=== PATIENT | female | born 1955 | race Caucasian/White ===

== ENCOUNTER 2017-04-24 12:50 | Inpatient (IN) | payer BC ==
[~2017-04-24] VITALS: Ht 167.6 cm; Wt 66.0 kg
[~2017-04-24 12:50] MED LIST: LACTATED RINGER'S 1000 ML INJ 1,000 ML IV ONE; ONDANSETRON HCL 4 MG/2 ML VIAL IV PUSH ONE; PHENYLEPH/NS 1000 MCG/10 ML SYR IV ONE; PROPOFOL 200 MG/20 ML AMP IV ONE; SODIUM CHLORID 0.9% 500 ML INJ 500 ML IV ONE
[2017-04-24] MEDS ORDERED: PENT400T PO (13:54)
--- NOTE | 2017-04-24 13:55 | RADRPT ---
EXAM DATE/TIME: 04/24/2017 13:21 [place] COMPARISON: No previous studies available for comparison. INDICATIONS : Evaluate for pneumonia, pneumothorax or communicable disease. Pre surgery colostomy MEDICAL HISTORY : Carcinoma, colon. SURGICAL HISTORY : Infusaport ENCOUNTER: Initial ACUITY: 1 day PAIN SCORE: 0/10 LOCATION: chest FINDINGS: A single view of the chest demonstrates the lungs to be symmetrically aerated without evidence of mas s, infiltrate or effusion. There is a right-sided implantable port catheter in place. The cardiomedi astinal contours are unremarkable. Osseous structures are intact. CONCLUSION: No acute disease. Dmitry Banerjee MD on April 24, 2017 at 13:53 Board Certified Radiologist. This report was verified electronically.
[2017-04-24] MEDS ORDERED: LACTATED RINGER'S 1000 ML IV PRN (14:00)
[2017-04-24] MEDS ORDERED: METOPROLOL TARTRATE 25 MG TAB PO PRN (14:00)
[2017-04-24] MEDS ORDERED: POVIDONE IODINE 5% (ANTISEPSIS KIT) 4 APPLICATIONS EACH NARE PRN (14:00)
[2017-04-24] MEDS ORDERED: DEXT 5%-NACL 0.9% 1000 ML INJ 1,000 ML IV SCH (14:00)
[2017-04-24] MEDS ORDERED: SODIUM CHLORIDE 0.9% FLUSH 10 ML FLUSH IV FLUSH PRN ×2 (14:00→17:00)
[2017-04-24] MEDS ORDERED: INSULIN HUMAN REGULAR 1,000 UNITS/10 ML VIAL SQ PRN (14:00)
[2017-04-24] MEDS ORDERED: SODIUM CHLORID 0.9% 500 ML IV PRN (14:00)
[2017-04-24] MEDS ORDERED: CHLORHEXIDINE GLUCONATE 2 % 1 PACK (2 CLOTHS) TOPICAL PRN (14:00)
[2017-04-24] MEDS ORDERED: ceFAZolin 1,000 MG/NS 100 ML IV SCH ×2 (14:00)
[2017-04-24] MEDS ORDERED: METRONIDAZOLE 500 MG/100 ML ISONTONIC SOLN IV SCH (14:00)
[2017-04-24 14:25] LABS: AUTOMATED NEUTROPHIL # 6.9 TH/MM3 (1.8-7.7); BASOPHIL % 0.4 % (0.0-2.0); EOSINOPHIL # 0.2 TH/MM3 (0-0.4); EOSINOPHIL % 2.5 % (0.0-4.0); HEMATOCRIT 36.7 % (35.0-46.0); HEMO FLAGS DIFF FINAL; LYMPHOCYTE # 0.9 TH/MM3 (1.0-4.8); MEAN CELL VOLUME 84.5 FL (80.0-100.0); MEAN CORPUSCULAR HEMOGLOBIN 27.9 PG (27.0-34.0); MONO % 6.6 % (0.0-8.0); NEUT % 80.5 % (16.0-70.0); PLATELET COUNT 239 TH/MM3 (150-450); RED BLOOD COUNT 4.34 MIL/MM3 (4.00-5.30); RED CELL DISTRIBUTION WIDTH 15.3 % (11.6-17.2); WHITE BLOOD COUNT 8.6 TH/MM3 (4.0-11.0)
[2017-04-24 14:35] LABS: APTT (PATIENT) 27.3 SEC (24.3-30.1); PROTHROMBIN TIME - PATIENT 10.7 SEC (9.8-11.6)
[2017-04-24 14:38] LABS: BACTERIA, URINE RARE /hpf; BLOOD, URINE ND (NEG); COMMENT (UR) CULTURE INDICATED; CULTURE IF INDICATED CULTURE INDICATED; GLUCOSE,URINE ND mg/dL (NEG); HYALINE CAST, URINE 22 /lpf (RARE); KETONE, URINE ND mg/dL (NEG); MUCUS URINE MANY /lpf (OCC); NITRITE,URINE ND (NEG); PH, URINE ND (5.0-8.5); SQUAMOUS EPITHELIAL CELL URINE 2 /hpf (0-5); URINE COLOR YELLOW (YELLW/STRAW)
[2017-04-24 14:46] LABS: ANION GAP 9 MEQ/L (5-15); AST (GOT) 5 U/L (15-37); BICARBONATE 23.9 MEQ/L (21.0-32.0); BLOOD UREA NITROGEN 18 MG/DL (7-18); CHLORIDE 106 MEQ/L (98-107); GLOMERULAR FILTRATION RATE 78 ML/MIN (>89); POTASSIUM 3.9 MEQ/L (3.5-5.1); SODIUM (NA) 139 MEQ/L (136-145)
[2017-04-24 14:47] LABS: ALT (GPT) 10 U/L (10-53)
[2017-04-24 14:49] LABS: ALKALINE PHOSPHATASE 94 U/L (45-117); TOTAL BILIRUBIN ADULT 0.3 MG/DL (0.2-1.0)
[2017-04-24] MEDS ORDERED: ACETAMINOPHEN 1000 MG/100 ML 100 ML IV ONE (14:59)
[2017-04-24] MEDS ORDERED: MIDAZOLAM HCL 2 MG/2 ML VIAL ONE (14:59)
[2017-04-24] MEDS ORDERED: HYDROmorphone HCL PF 2 MG/ML VIAL ONE (15:00)
[2017-04-24] MEDS ORDERED: FAMOTIDINE 20 MG/2 ML VIAL ONE (15:00)
[2017-04-24] MEDS ORDERED: SUGAMMADEX SODIUM 200 MG/2 ML VIAL IV PUSH ONE ×2 (16:18)
[2017-04-24] MEDS ORDERED: BENZOCAINE 6 MG/MENTHOL 10 MG LOZENGE BUCCAL PRN (17:00)
[2017-04-24] MEDS ORDERED: POTASSIUM CHLOR 20 MEQ PREMIX 100 ML IV PRN (17:00)
[2017-04-24] MEDS ORDERED: Post-op Orders (for Pharmacy) MISC XX ONE (17:00)
[2017-04-24] MEDS ORDERED: POTASSIUM CHLOR 40 MEQ PREMIX 100 ML IV PRN (17:00)
[2017-04-24] MEDS ORDERED: ONDANSETRON HCL 4 MG/2 ML VIAL IV PRN (17:00)
[2017-04-24] MEDS ORDERED: ACETAMINOPHEN/HYDROcodone 325 MG/5 MG TAB PO PRN (17:00)
[2017-04-24] MEDS ORDERED: ENALAPRILAT 1.25 MG/ML VIAL IV PRN (17:00)
[2017-04-24] MEDS ORDERED: NALOXONE HCL 0.4 MG/ML AMP IV PRN (17:00)
[2017-04-24] MEDS: D5-LR + KCL 20 MEQ INJ 1,000 ML IV SCH ×2 (17:20→23:53)
[2017-04-24] MEDS ORDERED: *MEPERIDINE 25 MG INJ VIAL PERIprocedural Use ONLY ONE (17:25)
[2017-04-24 18:14] LABS: BASOPHIL % 0.3 % (0.0-2.0); EOSINOPHIL # 0.2 TH/MM3 (0-0.4); EOSINOPHIL % 3.8 % (0.0-4.0); HEMATOCRIT 35.4 % (35.0-46.0); HEMO FLAGS DIFF FINAL; LYMPH % 20.4 % (9.0-44.0); LYMPHOCYTE # 1.2 TH/MM3 (1.0-4.8); MEAN CELL VOLUME 85.4 FL (80.0-100.0); MEAN CORPUSCULAR HEMOGLOBIN 27.8 PG (27.0-34.0); MEAN CORPUSCULAR HGB CONC 32.5 % (32.0-36.0); MONO % 6.9 % (0.0-8.0); NEUT % 68.6 % (16.0-70.0); PLATELET COUNT 214 TH/MM3 (150-450); RED BLOOD COUNT 4.14 MIL/MM3 (4.00-5.30); RED CELL DISTRIBUTION WIDTH 15.3 % (11.6-17.2); WHITE BLOOD COUNT 5.8 TH/MM3 (4.0-11.0)
[2017-04-24 18:24] LABS: BICARBONATE 25.6 MEQ/L (21.0-32.0)
[2017-04-24] MEDS: METOCLOPRAMIDE HCL 10 MG/2 ML VIAL IVS SCH ×2 (18:45→23:52)
[2017-04-24] MEDS: MORPHINE SULFATE 30 MG/30 ML PCA IV SCH (19:17)
[2017-04-24] MEDS: SODIUM CHLORIDE 0.9% FLUSH 10 ML FLUSH IV FLUSH SCH (20:10)
[2017-04-24 20:33] VITALS: PULSE 82
[2017-04-24 20:45] VITALS: BP 110/70; PULSE 78; RESP 18; TEMP 97.6; O2SAT 100
[2017-04-24 21:00] VITALS: PULSE 76
[2017-04-24] MEDS ORDERED: ZOLPIDEM TARTRATE 5 MG TAB PO PRN (21:00)
[2017-04-24] MEDS ORDERED: DO NOT ADM ANY ANTICOAGULANT DRUGS PRN (21:00)
[2017-04-24 22:00] VITALS: PULSE 76; RESP 16
[2017-04-24] MEDS: PCA - TOTAL MG MORPHINE DELIVERED PER SHIFT SCH (22:00)
[2017-04-24 23:00] VITALS: PULSE 81
[2017-04-24 23:20] VITALS: BP 103/64; PULSE 83; RESP 16; TEMP 97.9; O2SAT 98
[2017-04-25] VITALS (27 sets, daily range): BP systolic 86–112; BP diastolic 56–75; PULSE 84–123; RESP 16–18; TEMP 97.9–100.4; O2SAT 92–98
[2017-04-25] MEDS: METOCLOPRAMIDE HCL 10 MG/2 ML VIAL IVS SCH ×4 (05:04→23:28)
[2017-04-25 05:25] LABS: BASOPHIL % 0.2 % (0.0-2.0); EOSINOPHIL # 0.2 TH/MM3 (0-0.4); EOSINOPHIL % 2.8 % (0.0-4.0); HEMATOCRIT 33.5 % (35.0-46.0); HEMO FLAGS DIFF FINAL; LYMPH % 8.1 % (9.0-44.0); LYMPHOCYTE # 0.6 TH/MM3 (1.0-4.8); MEAN CELL VOLUME 85.2 FL (80.0-100.0); MEAN CORPUSCULAR HEMOGLOBIN 27.7 PG (27.0-34.0); MEAN CORPUSCULAR HGB CONC 32.5 % (32.0-36.0); MONO % 6.7 % (0.0-8.0); NEUT % 82.2 % (16.0-70.0); PLATELET COUNT 203 TH/MM3 (150-450); RED BLOOD COUNT 3.93 MIL/MM3 (4.00-5.30); WHITE BLOOD COUNT 7.3 TH/MM3 (4.0-11.0)
[2017-04-25] MEDS: PCA - TOTAL MG MORPHINE DELIVERED PER SHIFT SCH ×3 (05:29→22:00)
[2017-04-25 05:47] LABS: BICARBONATE 27.8 MEQ/L (21.0-32.0); POTASSIUM 4.2 MEQ/L (3.5-5.1)
[2017-04-25] MEDS: D5-LR + KCL 20 MEQ INJ 1,000 ML IV SCH ×2 (06:31→15:27)
[2017-04-25] MEDS: PANTOPRAZOLE SODIUM 40 MG VIAL IVP SCH (09:38)
[2017-04-25] MEDS: SODIUM CHLORIDE 0.9% FLUSH 10 ML FLUSH IV FLUSH SCH ×2 (10:24→21:00)
[2017-04-25] MEDS: MORPHINE SULFATE 30 MG/30 ML PCA IV SCH (10:49)
--- NOTE | 2017-04-25 10:51 | PD.WCN.NOT ---
Wound Consult Description: Consult for New Ostomy Teaching per Dr Madden Communicated with: ROSEANNA Gonzalez Additional Information: Attempted to see patient on [facility]. Patient was up to chair with visitors present with OPERATIONS SUPPORT SPECIALIST attempting to place patient back into bed. Will return with Colostomy kit later today. Ostomy Type: Colostomy Surgeon: Toni Madden MD Date of Surgery: Apr 24, 2017 [facility] Apr 25, 2017 10:51
--- NOTE | 2017-04-25 15:45 | HHI.PR ---
Subjective Remarks No N or V. Liquid stool. C/O pain Objective Vital Signs Date Time Temp Pulse Resp B/P (MAP) Pulse Ox O2 Delivery O2 Flow Rate FiO2 04/25/17 14:12 17 04/25/17 14:00 91 04/25/17 13:50 97/66 (76) 04/25/17 13:42 17 04/25/17 13:00 88 04/25/17 12:30 94 Nasal Cannula 2.00 04/25/17 12:00 85 04/25/17 11:53 88 86/56 (66) 04/25/17 11:00 98 Room Air 04/25/17 11:00 98.2 87 17 88/57 (67) 93 04/25/17 11:00 84 04/25/17 10:57 85 17 88/57 (67) 98 04/25/17 10:49 18 04/25/17 10:00 88 04/25/17 09:00 90 04/25/17 08:00 92 04/25/17 08:00 100 Nasal Cannula 2.00 04/25/17 07:00 93 04/25/17 06:00 90 04/25/17 06:00 16 04/25/17 05:29 16 04/25/17 05:00 96 04/25/17 04:00 90 04/25/17 04:00 87 04/25/17 03:30 96 Nasal Cannula 2.00 04/25/17 03:30 98.5 91 16 95/60 (72) 96 04/25/17 03:00 88 04/25/17 02:00 87 04/25/17 01:00 84 04/25/17 00:00 84 04/24/17 23:20 97.9 83 16 103/64 (77) 98 04/24/17 23:20 98 Nasal Cannula 2.00 04/24/17 23:00 81 04/24/17 22:00 16 04/24/17 22:00 76 04/24/17 22:00 16 04/24/17 21:00 76 04/24/17 20:45 97.6 78 18 110/70 (83) 100 04/24/17 20:45 100 Nasal Cannula 2.00 04/24/17 20:33 82 04/24/17 19:45 97.7 76 14 109/64 (79) 100 Nasal Cannula 3 04/24/17 19:17 14 04/24/17 19:15 79 14 120/72 (88) 100 Nasal Cannula 3 04/24/17 18:15 74 14 114/70 (85) 100 Nasal Cannula 3 04/24/17 18:00 72 14 120/67 (84) 100 Nasal Cannula 3 04/24/17 17:45 76 14 127/72 (90) 100 Nasal Cannula 3 04/24/17 17:30 73 14 133/76 (95) 100 Nasal Cannula 4 04/24/17 17:17 97.7 81 14 136/72 (93) 100 Nasal Cannula 4 I/O 04/24/17 04/24/17 04/24/17 04/25/17 04/25/17 04/25/17 07:00 15:00 23:00 07:00 15:00 23:00 Intake Total 100 ml 1800 ml 1345 ml 1128 ml Output Total 285 ml 790 ml Balance 100 ml 1515 ml 555 ml 1128 ml Intake Oral 0 ml IV Total 100 ml 1345 ml 1128 ml Other 1800 ml Output Urine Total 210 ml 750 ml Stool Total 40 ml Estimated Blood Loss 75 ml Result Diagram: 04/25/17 0500 04/25/17 0500 Objective Remarks VS-S Abd: soft,stoma pink but large and edematous with venous engorgement. Assessment and Plan Assessment and Plan Stable POD#1 Advance diet. Colostomy bar to be removed next Friday. Colostomy teaching and [facility] Toni Madden MD Apr 25, 2017 15:45
--- NOTE | 2017-04-25 15:50 | HHI.FF ---
Face to Face Verification Diagnosis: (1) Colostomy status Home Health Nursing Order: Medical education Wound care and dressing changes Nursing assessment with vital signs Instructions: Needs colostomy supplies and teaching for new colostomy and colostomy bar to be removed 05/01/17 or 05/02/17 I have seen patient Margo Torres on 04/25/17. My clinical findings support the need for the requested home health care services because: Ltd mobility - disease progression Deconditioned w/ increased weakness Limited ability to care for self Need for psychosocial assistance I certify that my clinical findings support that this patient is homebound because: Post-op weakness Hx COPD- exertion dyspnea/weakness Unsteady gait/balance Need for psychosocial assistance Toni Madden MD Apr 25, 2017 15:50
--- NOTE | 2017-04-25 16:45 | PD.WCN.NOT ---
Wound Consult Description: Consult for New Ostomy Teaching per Dr Madden Communicated with: Patient Patients Patients friend Recommendation: Read booklet inside Colostomy kit provided Write down any questions you may have so you can obtain answers prior to discharge Practice using the appliances inside the kit (opening and closing and attaching the barrier to the pouch) Observe the staff open, empty, and close the pouch Empty pouch when 1/3-1/2 full Change barrier every 5-7 days and PRN for peristomal skin assessments Additional Information: Patient seen on [facility] for ostomy assessment and teaching. Ostomy Type: Colostomy Surgeon: Toni Madden MD Date of Surgery: Apr 24, 2017 Complete: Starter kit, Education materials, Other (4 appliances ordered in size 2 3/4" for stoma size of 1 3/4") Educated patient on: Patient was falling asleep during discussion of ostomy and general teaching topics includin. Wear time of 5-7 days, no longer 2. Emptying pouch before bedtime and when 1/3-1/2 full 3. Diet 4. Measuring of the stoma with each appliance private branch exchange installer the next 6-8 weeks 5. Output and color of stoma 6. Peristomal skin care (using adhesive removal wipes to take barrier off and using water only for cleansing of peristomal skin) 7. Sleeping with a snug fitting tshirt 8. Where and how to empty pouch of effluent 9. Demonstration of barrier and pouch 10. 4 appliances ordered for patient to go home with Additional information Patient seen on [facility] for ostomy teaching and ostomy assessment and had just gotten back into bed from sitting up in chair for second time today. Stoma was visualized on the mid left abdomen and measured 1 3/4". Stoma is dark red, round, moist, edematous, rachana in place, ~50ml of dark red liquid noted to pouch, and barrier intact with no leaks noted. Colostomy kit was given to patient with the booklet taken out and shown. Discussion with patient while she was falling asleep throughout, patients and patients friend were participating in the conversation and had questions that were answered. Will follow up with patient if available on Friday04/29/17. [facility] Apr 25, 2017 16:45
[2017-04-25 23:31] LABS: BLOOD GAS BASE EXCESS 2.3 mmol/L (-2-2); BLOOD GAS CARBOXYHEMOGLOBIN 2.2 % (0-4); BLOOD GAS HCO3 27 mmol/L (22-26); BLOOD GAS METHEMOGLOBIN 1.3 % (0-2); BLOOD GAS O2 HGB SATURATION 90 % (90-100); BLOOD GAS OXYGEN CONTENT 14.3 Vol % (12.0-20.0); BLOOD GAS PCO2 46 mmHg (38-42); BLOOD GAS PO2 72 mmHg (61-120); BLOOD GAS TOTAL HGB 11.2 G/DL (12.0-16.0); CRITICAL VALUE NO; TEMP CORR TO 98.6
[2017-04-25 23:32] LABS: DRAW SITE RT BRACHIAL; LITER FLOW 2.5 L/M; NUMBER OF ARTERIAL PUNCTURES 1; OXYGEN DEVICE NASAL CANNULA; STAT YES
[2017-04-26] VITALS (25 sets, daily range): BP systolic 90–108; BP diastolic 55–71; PULSE 82–104; RESP 16–19; TEMP 97.5–98.2; O2SAT 93–97
--- NOTE | 2017-04-26 01:19 | EKG ---
Date Performed: 04/24/2017 Time Performed: 13:20:33 PTAGE: 62 years EKG: Sinus rhythm NORMAL ECG NO PREVIOUS TRACING DOCTOR: Arden Bocanegra Interpretating Date/Time 04/26/2017 01:18:24
[2017-04-26 05:46] LABS: AUTOMATED NEUTROPHIL # 5.7 TH/MM3 (1.8-7.7); BASOPHIL % 0.2 % (0.0-2.0); EOSINOPHIL # 0.2 TH/MM3 (0-0.4); EOSINOPHIL % 2.3 % (0.0-4.0); HEMATOCRIT 33.3 % (35.0-46.0); HEMO FLAGS DIFF FINAL; LYMPHOCYTE # 0.8 TH/MM3 (1.0-4.8); MEAN CELL VOLUME 85.7 FL (80.0-100.0); MEAN CORPUSCULAR HEMOGLOBIN 28.1 PG (27.0-34.0); MEAN CORPUSCULAR HGB CONC 32.7 % (32.0-36.0); MONO % 8.5 % (0.0-8.0); PLATELET COUNT 192 TH/MM3 (150-450); RED BLOOD COUNT 3.88 MIL/MM3 (4.00-5.30); WHITE BLOOD COUNT 7.3 TH/MM3 (4.0-11.0)
[2017-04-26] MEDS: PCA - TOTAL MG MORPHINE DELIVERED PER SHIFT SCH ×2 (06:00→14:00)
[2017-04-26 06:10] LABS: BICARBONATE 29.8 MEQ/L (21.0-32.0)
[2017-04-26] MEDS: METOCLOPRAMIDE HCL 10 MG/2 ML VIAL IVS SCH ×4 (06:12→22:03)
[2017-04-26] MEDS: PANTOPRAZOLE SODIUM 40 MG VIAL IVP SCH (09:12)
[2017-04-26] MEDS: SODIUM CHLORIDE 0.9% FLUSH 10 ML FLUSH IV FLUSH SCH ×2 (09:13→20:12)
[2017-04-26] MEDS: D5-LR + KCL 20 MEQ INJ 1,000 ML IV SCH (11:02)
--- NOTE | 2017-04-26 15:19 | HHI.PR ---
Subjective Remarks POD#2 s/p diverting colostomy Comfortable Objective Vital Signs Date Time Temp Pulse Resp B/P (MAP) Pulse Ox O2 Delivery O2 Flow Rate FiO2 04/26/17 15:02 96 Nasal Cannula 2.00 04/26/17 15:02 97.8 89 17 103/67 (79) 96 04/26/17 14:00 18 04/26/17 11:00 97.7 87 18 101/71 (81) 97 04/26/17 11:00 97 Nasal Cannula 2.00 04/26/17 07:00 97.5 85 18 95/58 (70) 93 04/26/17 07:00 93 Nasal Cannula 2.00 04/26/17 06:00 16 04/26/17 06:00 90 04/26/17 06:00 16 04/26/17 05:00 84 04/26/17 04:00 83 04/26/17 03:30 98.2 87 16 90/55 (67) 96 04/26/17 03:30 96 Nasal Cannula 2.00 04/26/17 03:00 88 04/26/17 02:00 98 04/26/17 01:00 104 04/26/17 00:00 104 04/25/17 23:30 109 04/25/17 23:00 99.0 110 16 91/66 (74) 94 04/25/17 23:00 94 Nasal Cannula 2.00 04/25/17 22:00 16 04/25/17 22:00 16 04/25/17 20:01 92 Nasal Cannula 2.00 04/25/17 20:00 100.4 123 16 112/75 (87) 92 04/25/17 20:00 66 Room Air 04/25/17 19:30 21 04/25/17 16:09 Nasal Cannula 2.00 04/25/17 16:00 94 I/O 04/25/17 04/25/17 04/25/17 04/26/17 04/26/17 04/26/17 07:00 15:00 23:00 07:00 15:00 23:00 Intake Total 1345 ml 1128 ml 582 ml 800 ml 270 ml Output Total 790 ml 1050 ml 1120 ml Balance 555 ml 1128 ml -468 ml -320 ml 270 ml Intake Oral 0 ml 240 ml 240 ml IV Total 1345 ml 1128 ml 342 ml 560 ml 270 ml Output Urine Total 750 ml 1000 ml 1100 ml Stool Total 40 ml 50 ml 20 ml Result Diagram: 04/26/17 0445 04/26/17 0445 Objective Remarks Abdomen soft, nondistended, tender Stoma dusky Assessment and Plan Assessment and Plan Await bowel function Mobilize Frances Ontiveros MD Apr 26, 2017 15:19
[2017-04-26] MEDS: MORPHINE SULFATE 30 MG/30 ML PCA IV SCH (17:17)
[2017-04-26] MEDS: diphenhydrAMINE HCL 50 MG CAP PO PRN (18:35)
[2017-04-26] MEDS: ACETAMINOPHEN/HYDROcodone 325 MG/5 MG TAB PO PRN (22:04)
[2017-04-27] MEDS: ACETAMINOPHEN/HYDROcodone 325 MG/5 MG TAB PO PRN ×5 (01:56→22:03)
[2017-04-27 04:00] VITALS: BP 107/69; PULSE 85; RESP 19; TEMP 96.6; O2SAT 94
[2017-04-27] MEDS: METOCLOPRAMIDE HCL 10 MG/2 ML VIAL IVS SCH ×4 (05:24→22:03)
[2017-04-27] MEDS: D5-LR + KCL 20 MEQ INJ 1,000 ML IV SCH (05:24)
--- NOTE | 2017-04-27 06:28 | MP ---
cc: AYDEE HOLLIDAY MD, JOHN T. M.D. DATE OF SURGERY: 04/24/2017 PREOPERATIVE DIAGNOSIS: 1. Squamous cell carcinoma of the anal canal. 2. Severe anal pain due to radiation therapy of squamous cell carcinoma of the anal canal. POSTOPERATIVE DIAGNOSIS: 1. Squamous cell carcinoma of the anal canal. 2. Severe anal pain due to radiation therapy of squamous cell carcinoma of the anal canal. OPERATION: 1. Fully diverting loop sigmoid colostomy. 2. Flexible sigmoidoscopy 3. Rectal biopsies of previous anal canal carcinoma. ANESTHESIA General endotracheal anesthesia SURGEON Dr. Madden ESTIMATED BLOOD LOSS Minimal. OPERATIVE FINDINGS This patient was treated for a large posterior squamous cell carcinoma of the anal canal. She underwent therapeutic radiation therapy and chemotherapy, and then was referred to me with severe anal pain. She is presently about 4-1/2 months status post treatment and she has a large nonhealing posterior rectal ulcer in her lower rectum and the upper anal canal. She has been having really incontinence for stool an anal pain for all of the months during her treatment and has gotten to a point now where she cannot stand it anymore. I talked to her about the options of simply doing an abdominal perineal resection with an end colostomy assuming that there is still residual carcinoma or simply doing a diverting loop colostomy and biopsying the area once again to see if there is any residual. She decided with the colostomy and biopsy route to try to relieve her pain. At surgery a small incision was made in the left lower quadrant and the sigmoid colon was brought up into the stoma site and matured in an end-loop manner, closing the distal end so that no stool could go down in through her lower sigmoid and rectum to cause her pain. Also I did a flexible sigmoidoscopy to try to look at the area. There was too much stool there to really do anything. I did do transanal biopsies of the large ulcer which is really half the circumference of the distal rectum and anal canal. The ulcer does look quite clean and it does not appear to be carcinoma related, simply radiation related. I feel that it is fairly unlikely that she will be able to heal this area and get an anal sphincter control of stool back, although time will tell that. OPERATIVE TECHNIQUE The patient was placed on the table in the supine position. After adequate general endotracheal anesthesia, the legs were placed in the perineal lithotomy position and the abdomen was prepped and draped in the usual manner. A circular incision was made in the left lower quadrant at a previously marked location for the colostomy and the incision was taken down through the subcutaneous tissue and then the anterior rectus sheath was incised vertically and then the rectus muscle was split and the posterior rectus sheath was opened and the peritoneal cavity was entered. I was able to reach the sigmoid colon and pull up into the wound with adequate length. Priscila drain was placed around it and then a 70 mm bar was placed under the loop. I then did flexible sigmoidoscopy insufflating air determining which end was distal and then the loop was opened transversely toward the distal side and a 20 Belgian red rubber catheter was placed in the sigmoid and then a liter of saline solution was washed through the sigmoid and rectum for a rectal washout to get rid of the remainder of the stool in the rectum. Once this was completed the distal side of the colostomy was closed with a TX 60 green staple height stapler and then the colostomy was matured with interrupted 3-0 Vicryl sutures and the 70 mm colostomy appliance was placed. Once this was done, I once again went below and did transanal biopsies of the posterior rectal ulcer, both the base of the ulcer and the edges. Hemostasis was maintained with electrocautery. Once this was completed, sponge, needle and instrument counts were reported as correct. Estimated blood loss was minimal. The patient tolerated the procedure well and left the operating room in good condition. MD AMBREEN Sanchez/PEPPER /5:08 PM /5:27 AM
[2017-04-27] MEDS: PANTOPRAZOLE SODIUM 40 MG VIAL IVP SCH (07:45)
[2017-04-27 08:00] VITALS: BP 91/54; PULSE 69; RESP 16; TEMP 96.1; O2SAT 96
[2017-04-27] MEDS: SODIUM CHLORIDE 0.9% FLUSH 10 ML FLUSH IV FLUSH SCH ×2 (09:00→21:00)
--- NOTE | 2017-04-27 11:56 | HHI.PR ---
Subjective Remarks POD#3 s/p diverting colostomy Comfortable Objective Vital Signs Date Time Temp Pulse Resp B/P (MAP) Pulse Ox O2 Delivery O2 Flow Rate FiO2 04/27/17 08:05 Nasal Cannula 1.00 04/27/17 08:00 96.1 69 16 91/54 (66) 96 04/27/17 04:00 96.6 85 19 107/69 (82) 94 04/26/17 22:48 Nasal Cannula 2.00 04/26/17 22:41 97.5 84 19 108/68 (81) 96 04/26/17 20:06 95 Nasal Cannula 3.00 04/26/17 20:00 Nasal Cannula 2.00 04/26/17 20:00 97.6 87 90/64 (73) 96 04/26/17 19:00 101 04/26/17 18:00 96 04/26/17 17:17 16 04/26/17 17:00 88 04/26/17 16:00 88 04/26/17 15:02 96 Nasal Cannula 2.00 04/26/17 15:02 97.8 89 17 103/67 (79) 96 04/26/17 15:00 91 04/26/17 14:00 86 04/26/17 14:00 17 04/26/17 14:00 18 04/26/17 13:00 98 04/26/17 12:00 96 I/O 04/26/17 04/26/17 04/26/17 04/27/17 04/27/17 04/27/17 07:00 15:00 23:00 07:00 15:00 23:00 Intake Total 800 ml 270 ml 1034 ml 120 ml Output Total 1120 ml 1150 ml 100 ml Balance -320 ml 270 ml -116 ml 20 ml Intake Oral 240 ml 480 ml 120 ml IV Total 560 ml 270 ml 554 ml Output Urine Total 1100 ml 1150 ml Stool Total 20 ml 100 ml # Voids 2 Result Diagram: 04/26/175 04/26/17444 Objective Remarks Abdomen soft, nondistended, tender Stoma dusky, serosanguinous output Assessment and Plan Assessment and Plan Await bowel function HL IV Mobilize Frances Ontiveros MD Apr 27, 2017 11:56
[2017-04-27 12:00] VITALS: BP 110/64; PULSE 95; RESP 16; TEMP 96.2; O2SAT 92
[2017-04-27 16:00] VITALS: BP 111/66; PULSE 91; RESP 17; TEMP 96.9; O2SAT 92
[2017-04-27 20:00] VITALS: BP 106/66; PULSE 87; RESP 22; TEMP 96.8; O2SAT 96
[2017-04-27 20:01] VITALS: PULSE 88
[2017-04-27] MEDS: diphenhydrAMINE HCL 50 MG CAP PO PRN (22:39)
[2017-04-28] VITALS (7 sets, daily range): BP systolic 94–108; BP diastolic 52–70; PULSE 83–91; RESP 14–22; TEMP 96.3–97; O2SAT 90–98
[2017-04-28] MEDS: METOCLOPRAMIDE HCL 10 MG/2 ML VIAL IVS SCH ×4 (05:41→23:13)
[2017-04-28] MEDS: SODIUM CHLORIDE 0.9% FLUSH 10 ML FLUSH IV FLUSH SCH ×2 (09:06→19:33)
[2017-04-28] MEDS: PANTOPRAZOLE SODIUM 40 MG VIAL IVP SCH (09:06)
[2017-04-28] MEDS: ACETAMINOPHEN/HYDROcodone 325 MG/5 MG TAB PO PRN ×3 (09:07→18:11)
--- NOTE | 2017-04-28 12:35 | HHI.PR ---
Subjective Remarks POD#4 s/p diverting colostomy Comfortable Objective Vital Signs Date Time Temp Pulse Resp B/P (MAP) Pulse Ox O2 Delivery O2 Flow Rate FiO2 04/28/17 12:00 96.3 91 16 108/70 (83) 98 04/28/17 08:00 97.0 84 16 106/60 (75) 91 04/28/17 00:00 96.4 83 22 106/66 (79) 96 04/27/17 20:01 88 04/27/17 20:00 96.8 87 22 106/66 (79) 96 04/27/17 16:00 96.9 91 17 111/66 (81) 92 I/O 04/27/17 04/27/17 04/27/17 04/28/17 04/28/17 04/28/17 07:00 15:00 23:00 07:00 15:00 23:00 Intake Total 120 ml 2893 ml 240 ml Output Total 100 ml 400 ml Balance 20 ml 2493 ml 240 ml Intake Oral 120 ml 1260 ml 240 ml IV Total 1633 ml Output Urine Total 200 ml Stool Total 100 ml 200 ml # Voids 2 5 # Bowel Movements 2 Result Diagram: 04/26/17 0445 04/26/17 0445 Objective Remarks Abdomen soft, nondistended, tender Stoma pink, scant output Assessment and Plan Assessment and Plan Await bowel function Frances Ontiveros MD Apr 28, 2017 12:35
[2017-04-28] MEDS: diphenhydrAMINE HCL 50 MG CAP PO PRN (15:58)
[2017-04-29] VITALS (8 sets, daily range): BP systolic 98–137; BP diastolic 63–76; PULSE 72–95; RESP 16–20; TEMP 96.2–97.4; O2SAT 91–96
[2017-04-29] MEDS: diphenhydrAMINE HCL 50 MG CAP PO PRN (00:22)
[2017-04-29] MEDS: METOCLOPRAMIDE HCL 10 MG/2 ML VIAL IVS SCH ×2 (04:26→11:46)
[2017-04-29] MEDS: SODIUM CHLORIDE 0.9% FLUSH 10 ML FLUSH IV FLUSH SCH (09:08)
[2017-04-29] MEDS: PANTOPRAZOLE SODIUM 40 MG VIAL IVP SCH (09:08)
[2017-04-29] MEDS: ACETAMINOPHEN/HYDROcodone 325 MG/5 MG TAB PO PRN ×2 (09:16→16:35)
--- NOTE | 2017-04-29 13:57 | HHI.PR ---
Subjective Remarks No N or V. Soft stool. Not much pain Objective Vital Signs Date Time Temp Pulse Resp B/P (MAP) Pulse Ox O2 Delivery O2 Flow Rate FiO2 04/29/17 12:27 78 04/29/17 12:00 97.1 82 16 108/71 (83) 96 04/29/17 11:15 Room Air 04/29/17 11:15 78 04/29/17 09:44 75 04/29/17 08:02 72 04/29/17 08:00 96.2 95 18 137/76 (96) 92 04/29/17 07:57 Room Air 04/29/17 07:57 72 04/29/17 00:00 97.4 77 20 98/63 (75) 91 04/28/17 20:00 96.7 86 19 94/52 (66) 97 04/28/17 19:59 85 04/28/17 17:35 93 04/28/17 16:00 96.9 85 14 103/64 (77) 90 I/O 04/28/17 04/28/17 04/28/17 04/29/17 04/29/17 04/29/17 07:00 15:00 23:00 07:00 15:00 23:00 Intake Total 240 ml 1520 ml 120 ml 0 ml Output Total 0 ml 0 ml Balance 240 ml 1520 ml 120 ml 0 ml Intake Oral 240 ml 1520 ml 120 ml IV Total 0 ml Stool Total 0 ml 0 ml # Voids 7 2 # Bowel Movements 2 0 Result Diagram: 04/26/17 0445 04/26/17 0445 Objective Remarks VS-S Abd: soft,stoma pink but edematous,bar remains Assessment and Plan Assessment and Plan Stable POD#5 Change colostomy wafer today with probably a 57mm appliance. Remove bar today. Colostomy teaching and C. D/C today Toni Madden MD Apr 29, 2017 13:57
--- NOTE | 2017-04-29 17:59 | PD.WCN.NOT ---
Wound Consult Description: Consult for New Ostomy Teaching per Dr Madden Communicated with: ROSEANNA Kumar Patient Patient Recommendation: Empty pouch when 1/3-1/2 full Change barrier every 5-7 days and PRN for peristomal skin assessments Additional Information: Patient seen on [address] [place] [address] for Ostomy appliance change prior to discharge. Ostomy Type: Colostomy Surgeon: Toni Madden MD Date of Surgery: Apr 24, 2017 Complete: Starter kit, Education materials, Other (4 appliances ordered in oval size 2 3/4" for stoma size of 1 3/4" oval) Educated patient on: Changing the appliance every 5-7 days and PRN Peristomal skin care with water and soft cloths Appearance and measurement of stoma size over the next 6-8 weeks Use stoma paste as needed to build up and fill in creases prior to barrier application Contact insurance [employer] and ostomy supply companies for information regarding supplies that are available to you Me+ program for questions regarding supplies and basic stoma care Additional information Patient seen on [facility] for ostomy appliance change prior to discharge. Patient appliance was removed using adhesive removal wipes to protect skin. There was a moderate amount of stoma paste that had been applied that was somewhat difficult to remove and left a sticky residue on the peristomal skin that was left in place. The rachana was removed as physician requested prior to discharge. Patient tolerated the bar removal fairly. Stoma visualized on left mid quadrant was measured 1 3/4" oval, red with 2 darkened areas noted to stoma, moist, functioning with greenish brown malodorous thick liquid noted coming from lumen noted at 3 o'clock. Barrier size 2 3/4" oval appliance used with a small bead of stoma paste applied to rim of barrier. Drainable pouch attached and light pressure from a gloved hand was used to secure and warm appliance to adhere to abdomen. Many questions were answered that patient had written down over the weekend. Patient was encouraged to contact various suppliers for free appliances to trial and then contact insurance [employer] for specifics on obtaining appliances per her allotment. Jackelin Estrada [facility] Apr 29, 2017 17:59
--- NOTE | 2017-05-29 09:10 | MD ---
cc: AYDEE HOLLIDAY MD, JOHN T. M.D. ADMISSION DATE: 04/24/2017 DISCHARGE DATE: 04/29/2017 ADMISSION DIAGNOSIS 1. Squamous cell carcinoma of the anal canal. 2. Severe anal pain the radiation therapy and squamous cell carcinoma of the anal canal. DISCHARGE DIAGNOSIS 1. Anal ulcer secondary to radiation therapy for squamous cell carcinoma of the anal canal. OPERATIVE PROCEDURE 1. Fully diverting loop sigmoid colostomy 2. Flexible sigmoidoscopy 3. Rectal biopsies of previous anal canal carcinoma 04/24/2017 HISTORY This patient was treated for a large posterior squamous cell carcinoma of the anal canal. She underwent therapeutic radiation therapy and chemotherapy and then was referred to me with severe anal pain. She is presently about 4-1/2 month status post treatment and she has a large nonhealing posterior rectal ulcer in her lower rectum and upper anal canal. She has been having incontinence for stool and anal pain for months during and after her treatment and she is to the point where she cannot stand the pain anymore. I talked to her about the options of simply doing an abdominal perineal resection with an end colostomy permanently assuming that there is still residual carcinoma present or simply doing a diverting loop colostomy and biopsy of the area once again. She decided to have the diverting loop colostomy and biopsy to try to relieve her pain. LABORATORY DATA Pathology report on the removed specimen revealed only post radiation changes and indolent ulcer with no carcinoma present. HOSPITAL COURSE The patient was admitted to the hospital and underwent a diverting loop colostomy as mentioned. On the first postoperative day, she was started on a clear liquid diet. On the second postoperative day, she was started on a full liquid diet and on the third postoperative day she was started on a regular diet. Her abdomen was soft and nondistended. The stoma was somewhat dusky postoperatively and was edematous. She continued to improve and was seen by the enterostomal nurse and again the stoma was somewhat dusky and ischemic and venously engorged and swollen. Instructions were given and she was eventually discharged from the hospital on postoperative day #5 in good condition. She was instructed to do no lifting for six weeks, do no driving for two weeks and to follow up with me in the office in two weeks time. She was instructed to call me with any problems. MD AMBREEN Sanchez/AMANDA /1:32 PM /8:57 AM
== END 2017-04-29 16:44 | disposition home health service (06) | DRG 330 ==
LOC: HSDI 12:50 → HCIN 19:48 → N07B 04-26 21:50
PROVIDERS: ADMIT Colon & Rectal Surgery; ATTEND Colon & Rectal Surgery
PROC: 0DBP0ZX Excision of Rectum, Open Approach, Diagnostic (ICD-10-PCS; 2017-04-24)
PROC: 0DJD8ZZ Inspection of Lower Intestinal Tract, Via Natural or Artificial Opening Endoscopic (ICD-10-PCS; 2017-04-24)
PROC: 0D1N0Z4 Bypass Sigmoid Colon to Cutaneous, Open Approach (ICD-10-PCS; principal; 2017-04-24 15:17)
DX: K62.6 Ulcer of anus and rectum (principal); C21.1 Malignant neoplasm of anal canal; R15.9 Full incontinence of feces; K62.89 Other specified diseases of anus and rectum; F17.210 Nicotine dependence, cigarettes, uncomplicated; L29.9 Pruritus, unspecified; Z92.3 Personal history of irradiation; Z92.21 Personal history of antineoplastic chemotherapy; Y84.2 Radiological procedure and radiotherapy as the cause of abnormal reaction of the patient, or of later complication, without mention of misadventure at the time of the procedure; Z88.8 Allergy status to other drugs, medicaments and biological substances
CPT/HCPCS: 36600; 71010; 80048; 80053; 81001; 82805; 85025; 85610; 85730; 86077; 86850; 86870; 86900; 86901; 86902; 86920; 86922; 87077; 87086; 87186; 88305; 88307; 93005; 94150; C9113; J0131; J0690; J1170; J1642; J2175; J2250; J2270; J2370; J2405; J2765; J3010; J3480; J7040; J7120; Q0163

== ENCOUNTER 2018-06-23 11:37 | Inpatient (IN) ==
[2018-06-23] MEDS ORDERED: Sodium Chlor 0.9% Inj 500 ML IV.CONT ONE (12:15)
[2018-06-23] MEDS ORDERED: Metoprolol Tartrate 25 MG Tablet PO ONE (12:15)
[2018-06-23] MEDS ORDERED: Chlorhexidine Gluconate 2% 1 Pack (2 Cloths) TOPICAL ONE (12:15)
[2018-06-23] MEDS ORDERED: fentaNYL Citrate Inj 250 MCG/5 ML Ampul ONE (12:25)
[2018-06-23] MEDS ORDERED: HYDROmorphone PF Inj 2 MG/ML Vial ONE (12:25)
[2018-06-23] MEDS ORDERED: Sugammadex Inj 200 MG/2 ML Vial IV.PUSH ONE (13:25)
[2018-06-23] MEDS ORDERED: Normosol-R pH 7.4 Inj 1,000 ML IV.CONT ONE ×2 (13:33)
[2018-06-23] MEDS ORDERED: Lidocaine PF 1% Inj 5 ML Syringe OTHER ONE ×2 (13:33)
[2018-06-23] MEDS ORDERED: ceFAZolin 2 GM Premix Inj 2 GM/50 ML PIGGYBACK IV.SIG ONE (14:05)
--- NOTE | 2018-06-23 14:22 | P.OP ---
- Preoperative Diagnosis (1) History of anal cancer - Postoperative Diagnosis (1) History of anal cancer Date of procedure: 06/23/18 Procedure: Urologic procedures: Cystoscopy and placement of bilateral ureteral catheters Anesthesia: GETA Surgeon: Tank Mccollum MD Estimated blood loss (mL): 0 Pathology: none sent Operation and Findings: Urologic indication for procedures: Consulted intraoperatively to place bilateral ureteral catheters to aid in visualization of this patient's ureters during her colorectal procedure. Urologic procedures in detail: Concurrent with the colorectal surgeons I proceeded with cystoscopy and placement of bilateral ureteral catheters as follows: Initially cystoscopic evaluation was performed utilizing the rigid cystoscope with the 22 Mosotho sheath and the 30 degree lens. Both right and left ureteral orifices were in correct anatomic position draining clear yellow urine. There were no bladder mucosal lesions, calculi or diverticula formation. There are no areas suspicious for fistula formation. I then proceeded to pass a sensor 0.035 wire up the patient's left ureter until a small amount of resistance was met. A 6 Mosotho open-ended ureteral catheter was then advanced over this wire 25 cm in a cephalad direction and the wire withdrawn. The wire was reintroduced through secondary site via the cystoscope and the contralateral side was accomplished in similar fashion. The wire and cystoscope was then withdrawn and a 16 Mosotho 10 cc Yancey catheter was placed. Both ureteral catheters were anchored to the Yancey via a connector. All 3 catheters were placed to gravity drainage. This completes the urologic surgery portion of combined procedures on this patient.
[2018-06-23] MEDS ORDERED: Potassium Chlor 20 mEq Premix 20 MEQ/100 ML PIGGYBACK IV.SIG PRN (16:45)
[2018-06-23] MEDS ORDERED: Potassium Chlor 40 mEq Premix 40 MEQ/100 ML PIGGYBACK IV.SIG PRN (16:45)
[2018-06-23] MEDS ORDERED: Zolpidem Tartrate 5 MG Tablet PO PRN (16:47)
[2018-06-23] MEDS ORDERED: Naloxone Inj 0.4 MG/ML Vial IV.PUSH PRN (16:55)
[2018-06-23] MEDS ORDERED: KCL 20 mEq/D5W/LR Inj 1,000 ML ONE (17:00)
[2018-06-23] MEDS ORDERED: Morphine Inj 30 MG/30 ML PCA.VIAL PCA ONE (17:10)
[2018-06-23] MEDS: Morphine Inj 30 MG/30 ML PCA.VIAL PCA PRN (17:34)
[2018-06-23] MEDS: KCL 20 mEq/D5W/LR Inj 1,000 ML IV.CONT SCH ×2 (17:36→21:48)
[2018-06-23 17:43] LABS: Baso % (Auto) 0.5 % (0.0-2.0); Eos # (Auto) 0.1 th/mm3 (0.0-0.4); Hematocrit 37.6 % (35.0-46.0); Hemoglobin 12.5 gm/dL (11.6-15.3); Lymph # (Auto) 1.2 th/mm3 (1.0-4.8); Mean Corpuscular HGB Conc 33.2 % (32.0-36.0); Mean Corpuscular Hemoglobin 28.1 pg (27.0-34.0); Mean Corpuscular Volume 84.7 fL (80.0-100.0); Mean Platelet Volume 7.5 fL (7.0-11.0); Mono # (Auto) 0.3 th/mm3 (0.0-0.9); Mono % (Auto) 3.4 % (0.0-8.0); Neut # (Auto) 6.9 th/mm3 (1.8-7.7); Neut % (Auto) 81.1 % (16.0-70.0); Platelet Count 198 th/mm3 (150-450); Red Blood Count 4.44 mil/mm3 (4.00-5.30); Red Cell Distribution Width 15.5 % (11.6-17.2); White Blood Count 8.6 th/mm3 (4.0-11.0)
[2018-06-23 17:52] LABS: Calcium 7.7 mg/dL (8.5-10.1); Carbon Dioxide 27.9 meq/L (21.0-32.0); Potassium 3.6 meq/L (3.5-5.1)
--- NOTE | 2018-06-23 18:11 | MH ---
cc: Toni Madden MD, Shemin MD Bernard,Carlos DIAZ DATE OF ADMISSION: 06/23/2018 CHIEF COMPLAINT: 1. Anal incontinence. 2. Paracolostomy hernia. 3. History of anal cancer. HISTORY OF PRESENT ILLNESS: This patient is a 63-year-old patient who I had seen in the past. About a year and a half ago, she was diagnosed with anal cancer and was started on radiation therapy and chemotherapy. At the termination of the radiation and chemotherapy, she still had a large anal ulcer that biopsied benign, but she was having a lot of pain with this, so we did a diverting loop colostomy on her some time ago. She has developed a good sized paracolostomy hernia around that loop colostomy and she has full anal incontinence because of the radiation therapy. For this reason, she wished completion proctectomy/abdominal peritoneal resection with repair of her paracolostomy hernia. She did have a PET scan that seemed to show some hypermetabolic activity in some lymph nodes in the left pelvic sidewall and also the periaortic, para-iliac region. PAST MEDICAL HISTORY: Significant for previous diverticulitis, history of cervical cancer and a history of anal cancer. FAMILY HISTORY, SOCIAL HISTORY AND REVIEW OF SYSTEMS: Otherwise negative. PAST SURGICAL HISTORY: She has had a hysterectomy. PHYSICAL EXAMINATION: GENERAL: Well-developed, obese female in no acute distress. SKIN: Warm and dry. HEENT: Extraocular muscles intact. CHEST: Clear. HEART: S1 and S2 are heard. ABDOMEN: Obese, soft and nontender without masses. There is a left-sided fully diverting loop colostomy with a large paracolostomy hernia. RECTAL: Reveals a patulous anus with a previous posterior anal ulcer where the anal cancer was located, but this ulcer is now healed and scarred. EXTREMITIES: Range of motion within normal limits. NEUROLOGIC: Grossly normal. IMPRESSION: 1. Previous anal cancer, treated with radiation therapy and chemotherapy with subsequent anal incontinence. 2. Previous diverting loop colostomy. 3. Paracolostomy hernia. PLAN: Recommend abdominoperineal resection with closure of her perineum and then repair of her paracolostomy hernia by moving her colostomy to the other side. MD AMBREEN Sanchez/luz , 05:01 PM , 05:08 PM
--- NOTE | 2018-06-23 19:05 | MP ---
cc: Toni Madden MD, Shemin MD Bernard, Johnny MD DATE OF OPERATION: 06/23/2018 PREOPERATIVE DIAGNOSES: 1. Previous squamous cell carcinoma of the anal canal, status post radiation therapy and chemotherapy. 2. Anal incontinence due to radiation therapy and chemotherapy. 3. Left-sided colostomy with paracolostomy hernia. POSTOPERATIVE DIAGNOSES: 1. Previous squamous cell carcinoma of the anal canal, status post radiation therapy and chemotherapy. 2. Anal incontinence due to radiation therapy and chemotherapy. 3. Left-sided colostomy with paracolostomy hernia. PROCEDURE PERFORMED: 1. Abdominoperineal resection with colostomy moved to the right lower quadrant. 2. Repair of paracolostomy hernia. 3. Omental flap. SURGEON: Toni Madden MD COMMUNITY RELATIONS DIRECTOR: Alex Friedman MD ESTIMATED BLOOD LOSS: 200 mL. OPERATING TIME: 2 hours and 15 minutes. OPERATIVE FINDINGS: This patient had a previous squamous cell carcinoma of the anal canal and was treated with radiation therapy and chemotherapy with good result, although she had a large anal ulcer for many months that caused her a lot of pain. She also had anal incontinence and for this reason, a fully diverting loop colostomy was done in the sigmoid colon sometime ago. Since that time, she still had a lot of mucus drainage and full anal incontinence and for this reason, she wished to have her rectum resected. There was no evidence of any recurrence locally; however, on a couple of PET scans, she had some what appeared to be hypermetabolic lymphadenopathy on the left pelvic sidewall and the left iliac and aortic region. For this reason, resection was recommended as well. An abdominoperineal resection was done, resecting the sigmoid distal to her previous loop colostomy and her rectum and anal canal. Paracolostomy hernia repair was done and the colostomy was relocated in the right lower quadrant. Exploration of the abdominal cavity revealed that the liver was palpably normal as was the gallbladder. The colon just distal to the colostomy was somewhat indurated with diverticulosis and inspissated hard stool in the diverticula. The mesentery of the distal sigmoid colon was stuck to the bifurcation of the aorta and the left iliac artery, but this was eventually dissected free. This did not appear to have a contained tumor, but was somewhat inflammatory in nature. An abdominal perineal resection was done as was an end colostomy in the right lower quadrant. The remainder of the colon and small bowel was palpably normal. OPERATIVE TECHNIQUE: The patient was placed on the table in the supine position. After adequate general endotracheal anesthesia, the legs were placed in the perineal lithotomy position and the abdomen and perineum were prepped and draped in the usual manner. The colostomy was sutured closed with running 3-0 Vicryl suture prior to prepping and draping. A midline incision was made from the pubis to just above the umbilicus and carried down through the linea alba and the peritoneal cavity was entered with the above-mentioned findings. After inspecting the abdominal cavity, a transverse elliptical incision was made around the colostomy at the skin level and the colostomy was mobilized from the skin and the rectus muscle and the large paracolostomy hernia sac. The hernia sac was excised from the subcutaneous tissue. Next, the colostomy was delivered from the abdominal wall. The sigmoid colon, descending colon, splenic flexure and transverse colon were all mobilized from their peritoneal attachments and the omentum was mobilized from the transverse colon to allow for an omental flap to be placed in the pelvis to seal the pelvis. Once the sigmoid colon was mobilized, its mesentery was somewhat fixed against the left iliac artery anteriorly. The left ureter with the ureteral catheter could be palpated lateral to this and the right ureter was likewise palpated and protected at all times. Superior hemorrhoidal vessels were doubly clamped, cut, and doubly ligated right at the takeoff of the inferior mesenteric artery and the dissection was taken down posteriorly, peeling the mesentery off the left iliac artery as mentioned. The retrorectal space was entered with electrocautery and the dissection was taken down to the pelvic floor posteriorly, laterally, and the cul-de-sac was entered anteriorly and the dissection was taken down posterior to the vagina. The patient had already had a previous hysterectomy done. Next, the perineal portion of the dissection was done. An elliptical incision was made in the perineum and carried down into the ischiorectal fossa and then posteriorly just anterior to the coccyx. The pelvic floor was entered and the pelvic floor muscles, specifically the levator muscles, were divided with electrocautery laterally and then the rectum was passed down from above and the anterior dissection was taken off the posterior wall of the vagina without difficulty. Specimen was removed from the table. In the process of this dissection, the rectum fractured just above the anus at the site of the previous ulcer where the squamous cell carcinoma had been previously located. There was no evidence of any carcinoma here. Next, hemostasis was maintained throughout in the pelvis with electrocautery and then the subcutaneous tissue was closed in about 3 layers with interrupted 2-0 Vicryl sutures, and the skin was closed with interrupted 2-0 Vicryl subcuticular sutures and dressing was applied. Next, the omentum, which had been previously freed, was placed on the left colic gutter into the pelvis to seal the pelvis. Next, the left paracolostomy hernia was repaired since the colostomy had been taken out of this position. The fascia was closed posteriorly with a running #1 PDS suture and anteriorly transversely with a single strand #1 PDS suture as well. Once this was done, the subcutaneous tissue was irrigated thoroughly with saline solution and the subcutaneous tissue was approximated with interrupted 3-0 Vicryl sutures, and the skin was closed with skin irena. We then placed a drain in the pelvis posterior to the omentum and was brought out through a separate stab wound in the left lower quadrant. Once this was done, a colostomy site was made in the right middle to right upper quadrant, across her previous colostomy, but a little higher. This colostomy was brought out through the lateral portion of the rectus muscle. The colon had been previously divided with a EMETERIO stapling device prior to removing the distal end from the perineum. This colostomy was brought out through the stoma site. Next, the abdominal cavity and pelvis had been irrigated thoroughly with about 4 liters of saline solution, aspirated dry, and then the bowels were replaced in the abdominal cavity in an eyelet operator manner and then the abdominal cavity was closed in a single layer using a double-stranded #1 PDS suture. The subcutaneous tissue was irrigated thoroughly with a liter of saline solution and the skin was closed with skin irena, as was the previous colostomy wound. The colostomy was then matured, cutting off the distal staple line and maturing it with interrupted 3-0 Vicryl sutures, creating a short nipple. Once this was done, a 57 mm appliance was placed. The skin had all been closed with interrupted skin irena and dressings were applied. Sponge, needle and instrument counts were reported as correct. Estimated blood loss was 200 mL. Operating time was 2 hours and 15 minutes. The patient tolerated the procedure well and left the operating room in good condition. MD AMBREEN Sanchez/christina , 05:13 PM , 05:28 PM
[2018-06-23] MEDS: ceFAZolin 2 GM Premix Inj 2 GM/50 ML PIGGYBACK IV.SIG SCH (21:48)
[2018-06-24 05:03] LABS: Baso % (Auto) 0.1 % (0.0-2.0); Hematocrit 36.8 % (35.0-46.0); Hemoglobin 12.3 gm/dL (11.6-15.3); Lymph # (Auto) 0.5 th/mm3 (1.0-4.8); Lymph % (Auto) 4.3 % (9.0-44.0); Mean Corpuscular HGB Conc 33.5 % (32.0-36.0); Mean Corpuscular Hemoglobin 28.2 pg (27.0-34.0); Mean Corpuscular Volume 84.4 fL (80.0-100.0); Mean Platelet Volume 7.5 fL (7.0-11.0); Mono # (Auto) 0.4 th/mm3 (0.0-0.9); Mono % (Auto) 2.9 % (0.0-8.0); Neut # (Auto) 11.5 th/mm3 (1.8-7.7); Neut % (Auto) 92.7 % (16.0-70.0); Platelet Count 214 th/mm3 (150-450); Red Blood Count 4.36 mil/mm3 (4.00-5.30); Red Cell Distribution Width 15.3 % (11.6-17.2); White Blood Count 12.5 th/mm3 (4.0-11.0)
[2018-06-24 05:27] LABS: Calcium 7.7 mg/dL (8.5-10.1); Carbon Dioxide 27.8 meq/L (21.0-32.0); Potassium 4.3 meq/L (3.5-5.1)
[2018-06-24] MEDS: KCL 20 mEq/D5W/LR Inj 1,000 ML IV.CONT SCH ×3 (05:32→08:39)
[2018-06-24] MEDS: ceFAZolin 2 GM Premix Inj 2 GM/50 ML PIGGYBACK IV.SIG SCH ×2 (06:49→19:39)
--- NOTE | 2018-06-24 08:46 | P.PNCS ---
Subjective Colorectal Surgery Post Op Day #: 1 Interval history: Pt doing well. No vomiting, less nausea. IV fluids at 250/hr through night despite tapering orders. Reviewed with RNs Objective Result Diagrams: 06/24/18 04:29 06/24/18 04:29 Objective Remarks: Abd: soft,dressing dry except drain dressing wet.Stoma pink Assessment and Plan - Plan Transfer to [address] [place] [address] cath removed. D/C tele Change dressing on drain Place dressing of ABD pad on perineum as previously ordered. IVs to 100/hr
[2018-06-24] MEDS: Pantoprazole Inj 40 MG Vial IV.PUSH SCH (09:59)
[2018-06-24] MEDS: Morphine Inj 30 MG/30 ML PCA.VIAL PCA PRN (10:53)
--- NOTE | 2018-06-24 11:27 | P.PNWCN ---
Wound Care Nurse Consult Description: Received consult for Ostomy management for RMQ Colostomy that was moved from L to R side Communicated with: Patient Recommendation: Please empty colostomy pouch when 1/3 to 1/2 full. Change Colostomy appliance every 5 to 7 days or PRN if leaking. If leaking DO NOT tape adhesive border to reinforce. Bowel Diversion Stoma - Bowel Stoma Right Lower Abdomen Stoma Edema: Yes Stoma Diameter: 45 (mm) Stoma Appearance: Beefy Red, Protruding, Round Loop Supporting Chacho: No Collection Device: Two-piece Drainage Description: Blood-Tinged Wafer Size: 2 [address] Asia-Stomal Surrounding Tissue Sensation Description: No Symptoms - Additional Information Additional Information: Patient seen for colostomy management
[2018-06-24] MEDS: KCL 20 mEq/D5W/LR Inj 1,000 ML IV.SIG SCH (15:23)
[2018-06-25] MEDS: Morphine Inj 30 MG/30 ML PCA.VIAL PCA PRN (03:14)
[2018-06-25 05:05] LABS: Baso % (Auto) 0.1 % (0.0-2.0); Eos # (Auto) 0.2 th/mm3 (0.0-0.4); Eos % (Auto) 1.9 % (0.0-4.0); Hematocrit 33.8 % (35.0-46.0); Hemoglobin 11.4 gm/dL (11.6-15.3); Lymph # (Auto) 0.7 th/mm3 (1.0-4.8); Lymph % (Auto) 6.2 % (9.0-44.0); Mean Corpuscular HGB Conc 33.6 % (32.0-36.0); Mean Corpuscular Hemoglobin 28.2 pg (27.0-34.0); Mean Corpuscular Volume 83.8 fL (80.0-100.0); Mean Platelet Volume 7.3 fL (7.0-11.0); Mono # (Auto) 0.6 th/mm3 (0.0-0.9); Mono % (Auto) 5.4 % (0.0-8.0); Neut # (Auto) 10.2 th/mm3 (1.8-7.7); Neut % (Auto) 86.4 % (16.0-70.0); Platelet Count 191 th/mm3 (150-450); Red Blood Count 4.04 mil/mm3 (4.00-5.30); Red Cell Distribution Width 15.4 % (11.6-17.2); White Blood Count 11.8 th/mm3 (4.0-11.0)
[2018-06-25 05:27] LABS: Calcium 8.1 mg/dL (8.5-10.1); Carbon Dioxide 31.5 meq/L (21.0-32.0); Potassium 4.1 meq/L (3.5-5.1)
[2018-06-25] MEDS: Pantoprazole Inj 40 MG Vial IV.PUSH SCH (09:15)
[2018-06-25] MEDS: KCL 20 mEq/D5W/LR Inj 1,000 ML IV.SIG SCH ×3 (12:54→20:41)
--- NOTE | 2018-06-25 16:28 | P.PNCS ---
Subjective Colorectal Surgery Post Op Day #: 2 Interval history: No N or V. Small stool through colostomy. Has not ambulated. Up in chair earlier today. Yancey removed. Albuterol treatments started for respiratory. Objective Result Diagrams: 06/25/18 04:51 06/25/18 04:51 Objective Remarks: Abd: soft,dressing removed.Wound clean.Stoma pink. Small stool Assessment and Plan - Plan Transfer to [address] [place] [address] Ureteral cath removed today. Dressing removed by co IVs to 75cc/hr Albuterol started Ambulate in halls with help Yancey removed.
--- NOTE | 2018-06-25 17:42 | P.PNWCN ---
Wound Care Nurse Consult Description: Patient seen for follow up of Colostomy management for ostomy that was moved from L to R side Communicated with: Patient Recommendation: Please empty colostomy pouch when 1/3 to 1/2 full. Change Colostomy appliance every 5 to 7 days or PRN if leaking. If leaking DO NOT tape adhesive border to reinforce. Bowel Diversion Stoma - Bowel Stoma Right Lower Abdomen Stoma Edema: Yes Stoma Diameter: 45 (mm) Stoma Appearance: Beefy Red, Protruding, Round Loop Supporting Chacho: No Collection Device: Two-piece, Moldable Wafer Drainage Description: Liquid, Brown, Green Wafer Size: 2 3/4 moldable Asia-Stomal Surrounding Tissue Sensation Description: No Symptoms - Additional Information Additional Information: Patient seen for colostomy management. Patient's stoma on RLQ of abdomen was assessed today by mortgage or loan underwriter. Ostomy appliance is dry and intact. Delivered ostomy resource guide to patient. Supplies to be ordered for temporary home use, until supplies can be ordered from [employer] at home.
[2018-06-26] MEDS: KCL 20 mEq/D5W/LR Inj 1,000 ML IV.SIG SCH (15:17)
--- NOTE | 2018-06-26 16:27 | P.PNWCN ---
Wound Care Nurse Consult Description: Patient seen for follow up of Colostomy management for ostomy that was moved from L to R side Communicated with: ROSEANNA [facility] and patient Recommendation: Please empty colostomy pouch when 1/3 to 1/2 full. Change Colostomy appliance every 5 to 7 days or PRN if leaking. If leaking DO NOT tape adhesive border to reinforce. Bowel Diversion Stoma - Bowel Stoma Right Lower Abdomen Stoma Edema: Yes Stoma Diameter: 38 (mm) Stoma Appearance: Beefy Red, Protruding, Round Loop Supporting Chacho: No Collection Device: Two-piece Drainage Description: Liquid, Brown, Green Wafer Size: Sesura franco two piece transparent Stoma Care: Pouch and Wafer Changed, Skin Care Asia-Stomal Skin Appearance: Intact Asia-Stomal Surrounding Tissue Sensation Description: No Symptoms - Additional Information Additional Information: Patient seen on for continued ostomy management and teaching. Patient is laying in bed for ostomy assessment. Removed ostomy appliance in place to reveal Round, protruding, red stoma, that measures 1 1/2 inches or 38 mm in diameter. Stoma is moist, and peristomal skin is dry and intact. Patient is post op day 3 and has only had 10 cc of liquid brown/ green output. Stoma is releasing gas and and small brown soft effluent is noted coming from stoma lumen. Patient reports not eating previously and today was her first meal. Applied coloplast barrier ring placed in skin crease to seal. Applied Coloplast Sensura franco cut to fit ostomy [address] Patient tolerated well. Starter kit for coloplast ordered.
--- NOTE | 2018-06-26 18:00 | P.PNCS ---
Subjective Colorectal Surgery Post Op Day #: 3 Interval history: Still congested with low sats off O2. No Nor V. No BMs Objective Result Diagrams: 06/25/18 04:51 06/25/18 04:51 Objective Remarks: Abd: soft,dressing removed.Wound clean.Stoma pink. Drain removed by me Assessment and Plan - Plan Dressing removed by me IVs to hep lock or D/C if infiltrates Albuterol started Ambulate in halls with help Probable D/C in AM
--- NOTE | 2018-06-27 11:03 | XR ---
EXAM DATE: 06/27/2018 10:38 AM EDT AGE/SEX: 63 years / Female INDICATIONS: . Congestion and fever CLINICAL DATA: This is the patient's initial encounter. Patient reports that signs and symptoms have been present for 2 days and indicates a pain score of 0/10. MEDICAL/SURGICAL HISTORY: . Carcinoma, colon. . Colostomy. Infusaport. [place] [facility] [place]. . FINDINGS: Single AP view of the chest. Right-sided [id number] in place. Patchy opacity at the medial lung ba ses bilaterally. Mild blunting of the costophrenic sulci bilaterally. Cardiomediastinal silhouette wi thin normal limits. No evidence of pneumothorax. CONCLUSION: 1. Patchy bilateral lower lung zone atelectasis versus consolidation. 2. Small bilateral pleural effusions. Electronically signed by: Jameel Mohr MD 06/27/2018 11:01 AM EDT
--- NOTE | 2018-06-27 12:45 | P.PNCS ---
Subjective Colorectal Surgery Post Op Day #: 4 Interval history: s/p APR Objective Result Diagrams: 06/25/18 04:51 06/25/18 04:51 Objective Remarks: Abd: soft,dressing removed.Wound clean.Stoma pink. Assessment and Plan - Plan Still not able to maintain sats above 90 CXR with atelectasis vs consilidation Consult Pulmonology - will likely need home O2
[2018-06-27] MEDS: Furosemide 20 MG Tablet PO SCH (17:04)
[2018-06-27] MEDS: Metoclopramide 10 MG Tablet PO SCH ×2 (17:10→21:56)
--- NOTE | 2018-06-27 19:23 | MB ---
cc: Josue Mosley MD DATE: 06/27/2018 REQUESTING PHYSICIAN: Frances Ontiveros MD REASON FOR CONSULTATION: Postop respiratory insufficiency and hypoxia. HISTORY OF PRESENT ILLNESS: Ms. Torres is a 63-year-old female with a history of rectal cancer, status post surgery and radiation treatment. She has a large anal ulcer. The patient underwent surgery now for completion proctocolectomy and abdominal peritoneal resection. Postop, she is having mild shortness of breath and hypoxia. No fever or chills. No night sweats. She has a long history of smoking 1 pack a day until she entered the hospital. PAST MEDICAL HISTORY: Significant for history of cervical cancer, anal cancer, a history of diverticulitis, COPD. MEDICATIONS: She is currently takin. [place] 5/325 mg. 2. Albuterol nebulizer treatment. 3. Vasotec IV p.r.n. 4. Lasix 20 mg a day. 5. Reglan 10 mg before meals and at bedtime. 6. Zofran p.r.n. 7. Protonix 40 mg a day. 8. Ambien 5 mg as needed. ALLERGIES: SHE IS ALLERGIC TO IBUPROFEN. SOCIAL HISTORY: She has a history of smoking most of her life, 1 pack a day. No alcohol abuse. FAMILY HISTORY: She is , second time. She has 2 children. REVIEW OF SYSTEMS: Denies any weight loss. No fever or chills. No night sweats. No seizure, stroke or epilepsy. PHYSICAL EXAMINATION: GENERAL: Moderately built, malnourished female, not in any acute distress. VITAL SIGNS: Blood pressure 128/78, heart rate 94, respirations 18, temperature 97.3. HEENT: Unremarkable. NECK: Supple. JVD not raised. CHEST: Symmetrical bilaterally. No rhonchi. HEART: S1, S2, normal. ABDOMEN: Status post surgery. EXTREMITIES: No edema. IMPRESSION: 1. Mild hypoxia secondary to underlying atelectasis. 2. Respiratory insufficiency. PLAN: Further treatment will depend on the course in the hospital. Thank you, Dr. Frances Ontiveros, for this consult. Josue Mosley MD ADA/rw/rr , 04:49 PM , 04:55 PM SHAME[place]
[2018-06-27] MEDS: Budesonide-Formoterol 160/4.5 MCG 6 GM Inhaler INH SCH (22:10)
[2018-06-28] MEDS: Metoclopramide 10 MG Tablet PO SCH ×2 (09:13→13:24)
[2018-06-28] MEDS: Furosemide 20 MG Tablet PO SCH (09:14)
[2018-06-28] MEDS: Budesonide-Formoterol 160/4.5 MCG 6 GM Inhaler INH SCH (09:16)
--- NOTE | 2018-06-28 12:22 | P.PNCS ---
Subjective Colorectal Surgery Post Op Day #: 5 Interval history: s/p APR Objective Result Diagrams: 06/25/18 04:51 06/25/18 04:51 Objective Remarks: Abd: soft,dressing removed.Wound clean.Stoma pink. Assessment and Plan - Plan Doing well with sats Home today with inhaler
== END 2018-06-28 13:59 | disposition home or self-care (01) ==
LOC: HSDI 11:37 → HCPC 18:06 → N07 06-25 19:16
PROVIDERS: ADMIT Colon & Rectal Surgery; ATTEND Colon & Rectal Surgery